=== PATIENT | female | born 1985 | race Caucasian/White ===

== ENCOUNTER 2018-07-22 13:18 | Outpatient (CLI) | payer OTHER ==
[2018-07-22 14:16] LABS: Hemoglobin 14.2 g/dL (12.0-16.0); Mean Corpuscular HGB CONC 34.4 g/dL (32.0-36.0); Mean Corpuscular Hemoglobin 31.8 pg (27.0-31.0); Mean Corpuscular Volume 92.4 fL (78.0-98.0); Mean Platelet Volume 7.6 fL (7.4-10.4); Platelet Count 244 thou/uL (130-400); RBC Distribution Width 11.8 % (11.5-14.5); Red Blood Cell (RBC) Count 4.46 mill/uL (4.20-5.40); White Blood Cell (WBC) Count 8.9 thou/uL (4.8-10.8)
== END 2018-07-22 13:19 | disposition home or self-care (01) ==
LOC: LABBT 13:18
PROVIDERS: ATTEND Student in an Organized Health Care Education/Training Program
DX: Z01.812 Encounter for preprocedural laboratory examination (principal); O02.1 Missed abortion
CPT/HCPCS: 85027; 86850; 86870; 86900; 86901

== ENCOUNTER 2018-07-24 10:26 | Day surgery (SDC) | payer OTHER ==
[2018-07-22 13:32] VITALS: BMI 38.9
--- NOTE | 2018-07-23 19:29 | HP ---
PREOPERATIVE HISTORY AND PHYSICAL DATE OF OPERATION: 07/24/2018. CHIEF COMPLAINT: Incomplete at 11 weeks and 5 days. HISTORY OF PRESENT ILLNESS: This is a 33-year-old G1, P0 at 11 weeks and 5 days by last menstrual period that was diagnosed on an initial presentation on July 02 with missed at 8 weeks and 5 days. She opted to undergo Cytotec induction. She took Cytotec x2 doses, started bleeding and passing tissue. She then followed up 2 weeks later with continued bleeding and ultrasound showed products of conception in the lower uterine segment. These were attempted to be extracted with Uterine Dressing forceps, however, that was unsuccessful. The patient opted for repeat Cytotec dose. She took 2 doses at that evening and she did not pass any further tissue and continuous to bleed off and on at a moderate amount. She did not endorse any extreme pelvic pain, fever, or bleeding 1 pad per hour or more. The patient is ready for a definitive management with suction D and C. PAST MEDICAL HISTORY: Hypothyroidism and obesity. PAST SURGICAL HISTORY: Thyroid surgery in 2012. SOCIAL HISTORY: Current smoker. Negative for alcohol or drug use. FAMILY HISTORY: Diabetes, lung cancer, colon cancer, chronic hypertension, OH, and bone cancer. OB HISTORY: G1, P0, SAB current. 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 No history of abnormal Paps or STDs. CURRENT MEDICATIONS: 1. vitamin. 2. Folic acid. 3. Iron. 4. CARDIOLOGY SPECIALIST-Thyroid 120 mg tablet p.o. daily. 5. Probiotics. 6. Vitamin D3 of 4000 units two tablets p.o. daily. REVIEW OF SYSTEMS: Negative. PHYSICAL EXAMINATION: VITAL SIGNS: Blood pressure 120/76, respirations 18, and pulse 87. Weight 264, BMI is 38.4. GENERAL: In no acute distress. CARDIAC: Regular rate and rhythm. LUNGS: Clear to auscultation bilaterally. ABDOMEN: Soft, nontender, and nondistended. EXTREMITIES: No edema, cyanosis, or clubbing. PELVIC: Deferred to OR. ASSESSMENT AND PLAN: A 33-year-old G1, P0 at 11 weeks and 5 days with missed measuring approximately 8 weeks, status post attempted medical management x2 rounds with retained products of conception consistent with incomplete . The patient is dispositioned for suction dilatation and curettage and was discussed risks, benefits, and alternatives. The patient understands and wishes to proceed. She is already received RhoGAM for her Rh negative and she was started on doxycycline 100 mg p.o. b.i.d. on July 22 and we will continue this x5 days. She will follow up in the clinic in 2 days postoperative time. All questions were answered. Job ID: [id number]
[2018-07-24] MEDS ORDERED: Fentanyl 100 MCG/2 ML VIAL ONE (12:28)
[2018-07-24] MEDS ORDERED: Midazolam HCl 2 mg/2 ml Vial ONE (12:31)
[2018-07-24] MEDS ORDERED: Lidocaine 1% PF 5 ML VIAL ONE (13:02)
[2018-07-24] MEDS ORDERED: PROPOFOL 200 MG/20 ML VIAL ONE (13:02)
[2018-07-24] MEDS ORDERED: Ondansetron PF 4 MG/2 ML Vial ONE (13:02)
[2018-07-24] MEDS ORDERED: Ketorolac Tromethamine 30 MG/ML VIAL ONE (13:02)
[2018-07-24] MEDS ORDERED: Morphine 4 MG/ML VIAL ONE (13:44)
[2018-07-24] MEDS ORDERED: Promethazine HCl 25 MG/ML VIAL ONE (13:50)
--- NOTE | 2018-07-24 20:23 | OP ---
DATE OF PROCEDURE: 07/24/2018 PREOPERATIVE DIAGNOSIS: Incomplete at 8 weeks. POSTOPERATIVE DIAGNOSIS: Incomplete at 8 weeks. PROCEDURE PERFORMED: Suction dilation and curettage. ANESTHESIA: General with LMA. AIR CARRIER OPERATIONS INSPECTOR SURGEON: None. ESTIMATED BLOOD LOSS: 20 mL. IVF: 700 mL of crystalloid. URINE OUTPUT: 100 mL of clear urine at the beginning. COMPLICATIONS: None. PATHOLOGY: Products of conception. DRAINS: None. FINDINGS: On exam under anesthesia, small mobile uterus. Normal-appearing cervix and vaginal canal. There were a small amount of products of conception. Excellent hemostasis with no active bleeding at the conclusion of the procedure. OPERATIVE TECHNIQUE: The patient was taken to the operating room where general anesthesia was obtained without difficulty. The patient prepped and draped in a sterile fashion in dorsal lithotomy position. A red rubber was used to drain the bladder. A speculum was placed in the vagina and the anterior lip of the cervix was grasped with a single-tooth tenaculum. The cervix was progressively dilated with Romero dilators and an 8 mm suction cannula was attached to the tubing, but pressure was tested and maximum of 55 mmHg was set. The suction cannula was placed into the uterus into the fundus. A pressure was applied and using a circular motion, the suction cannula was slowly withdrawn and POCs did return. This was performed x2 additional passes with scant blood and no tissue returning. Sharp curettage was taken until gritty tissue was noted in all four quadrants of the uterus. There was no active bleeding noted at that time. Suction cannula was again passed to the uterine fundus. Pressure was applied and withdrawn slowly in a circular motion. There was very little blood that was passing through and no tissue. This was performed x1 additional time. The cervix was then observed and there was no active bleeding from the cervix. The tenaculum was removed. The tenaculum sites were cauterized slightly and then held pressure and these were hemostatic also. All instruments were removed out of the vagina. The patient tolerated the procedure well. Sponge and needle counts correct x2. The patient was taken to recovery room in stable condition. Job ID: [id number]
== END 2018-07-24 13:30 | disposition home or self-care (01) ==
LOC: SDC 10:26
PROVIDERS: ATTEND Student in an Organized Health Care Education/Training Program
PROC: 10D17ZZ Extraction of Products of Conception, Retained, Via Natural or Artificial Opening (ICD-10-PCS; principal; 2018-07-24)
DX: O02.1 Missed abortion (principal); E03.9 Hypothyroidism, unspecified; E66.9 Obesity, unspecified; F17.200 Nicotine dependence, unspecified, uncomplicated; Z79.899 Other long term (current) drug therapy
CPT/HCPCS: 88305; 96374; J1885; J2001; J2250; J2270; J2405; J2550; J2704; J3010

== ENCOUNTER 2018-11-27 16:21 | Outpatient (CLI) | payer OTHER ==
--- NOTE | 2018-11-27 16:52 | RAD ---
THORACIC SPINE THREE VIEWS: 11/27/18 HISTORY: Thoracic spine pain. FINDINGS/IMPRESSION: No fracture, subluxation or bony destruction identified. POS: JACKLYN
== END 2018-11-27 16:22 | disposition home or self-care (01) ==
LOC: BICRAD 16:21
PROVIDERS: ATTEND Internal Medicine
DX: M54.6 Pain in thoracic spine (principal); S29.9XXD Unspecified injury of thorax, subsequent encounter; S22.32XD Fracture of one rib, left side, subsequent encounter for fracture with routine healing
CPT/HCPCS: 72072; 87070

== ENCOUNTER 2019-06-02 14:57 | Emergency (ER) | payer OTHER ==
--- NOTE | 2019-06-02 16:11 | RAD ---
Exam: XR Knee Lt 4 View STANDARD HISTORY: Injury to left knee. Left knee pain. COMPARISON: None FINDINGS: No acute fracture, dislocation, or other acute osseous abnormality is identified. IMPRESSION: No acute osseous abnormality is identified.
== END 2019-06-02 16:45 | disposition home or self-care (01) ==
LOC: SCSER 14:57
DX: S83.92XA Sprain of unspecified site of left knee, initial encounter (principal); F17.210 Nicotine dependence, cigarettes, uncomplicated; X58.XXXA Exposure to other specified factors, initial encounter

== ENCOUNTER 2019-12-31 06:56 | Outpatient (CLI) | payer OTHER ==
[2019-12-31 14:02] LABS: #Eosinphils 0.2 thou/uL (0.0-0.7); #Lymphocytes 1.8 thou/uL (1.20-3.40); #Monocytes 0.5 thou/uL (0.11-0.59); #Neutrophils 3.6 thou/uL (1.40-6.50); %Basophils 0.4 % (0.0-1.0); %Monocytes 7.8 % (0.0-10.0); %Neutrophils 58.9 % (42.0-75.0); Hemoglobin 13.7 g/dL (12.0-16.0); Mean Corpuscular HGB CONC 33.5 g/dL (32.0-36.0); Mean Corpuscular Hemoglobin 31.3 pg (27.0-31.0); Mean Corpuscular Volume 93.5 fL (78.0-98.0); Mean Platelet Volume 8.7 fL (7.4-10.4); Platelet Count 202 thou/uL (130-400); Red Blood Cell (RBC) Count 4.37 mill/uL (4.20-5.40); White Blood Cell (WBC) Count 6.1 thou/uL (4.8-10.8)
[2019-12-31 15:05] LABS: BHCG - Serum Negative (NEGATIVE); Pregs Control Background? CLEAR/WHITE (CLR/WHITE); Pregs Control Bar Appear? YES (CONTROL BAR)
[2020-01-01 12:08] LABS: SARS-CoV-2 MS2 Positive; SARS-CoV-2 N Gene Negative; SARS-CoV-2 S Gene Negative; SARS-CoV-2 orf1ab Negative
== END 2019-12-31 06:57 | disposition home or self-care (01) ==
LOC: LABBT 06:56
PROVIDERS: ATTEND Orthopaedic Surgery
DX: Z01.812 Encounter for preprocedural laboratory examination (principal); Z11.59 Encounter for screening for other viral diseases; S83.512A Sprain of anterior cruciate ligament of left knee, initial encounter
CPT/HCPCS: 84703; 85025; 87635; U0003

== ENCOUNTER 2020-01-05 08:18 | Day surgery (SDC) | payer OTHER ==
[2019-12-30 15:28] VITALS: BMI 35.7
[2020-01-05] MEDS ORDERED: Fentanyl 100 MCG/2 ML VIAL ONE ×3 (09:50→15:06)
[2020-01-05] MEDS ORDERED: Midazolam HCl 2 mg/2 ml Vial ONE (09:50)
[2020-01-05] MEDS ORDERED: traMADol HCl 50 MG TAB PO PRN ×2 (10:03)
[2020-01-05] MEDS ORDERED: Zolpidem Tartrate 5 MG TAB PO PRN (10:03)
[2020-01-05] MEDS ORDERED: HYDROcodone/Acetaminophen 10/325 mg Tablet PO PRN ×2 (10:03)
[2020-01-05] MEDS ORDERED: Promethazine HCl 25 MG/ML VIAL IM PRN (10:03)
[2020-01-05] MEDS ORDERED: Ropivacaine 0.2% 550 ML 550 ML NERVE BLCK SCH (10:03)
[2020-01-05] MEDS ORDERED: Ondansetron PF 4 MG/2 ML Vial IVP PRN (10:03)
[2020-01-05] MEDS ORDERED: Fentanyl 100 MCG/2 ML VIAL SLOW IVP PRN (10:04)
[2020-01-05] MEDS ORDERED: Scopolamine 1.5 mg/72 hour Patch ONE (10:10)
[2020-01-05] MEDS ORDERED: HYDROmorphone 0.5 MG/0.5 ML SYRINGE ONE (10:40)
[2020-01-05] MEDS ORDERED: Ondansetron PF 4 MG/2 ML Vial ONE ×2 (13:17→14:35)
[2020-01-05] MEDS ORDERED: Promethazine HCl 25 MG/ML VIAL ONE (13:31)
[2020-01-05] MEDS ORDERED: HYDROcodone/Acetaminophen 5/325 mg Tablet ONE (13:49)
[2020-01-05] MEDS ORDERED: Bupivacaine HCl 0.5%/Epinephrine 1:200,000/PF 30 ml Vial ONE (14:35)
[2020-01-05] MEDS ORDERED: Dexamethasone 20 MG/5 ML VIAL ONE (14:35)
[2020-01-05] MEDS ORDERED: Ketorolac Tromethamine 30 MG/ML VIAL ONE (14:35)
[2020-01-05] MEDS ORDERED: PROPOFOL 200 MG/20 ML VIAL ONE (14:35)
[2020-01-05] MEDS ORDERED: Lidocaine 1% PF 5 ML VIAL ONE (14:35)
--- NOTE | 2020-01-05 22:57 | OP ---
DATE OF PROCEDURE: 01/05/2020 PREOPERATIVE DIAGNOSIS: Left ACL tear. POSTOPERATIVE DIAGNOSIS: Left ACL tear with grade 2 to 3 changes of medial femoral condyle. No full-thickness cartilage defect. PROCEDURE PERFORMED: Left ACL reconstruction. PLASTER BLOCK LAYER: Zeus Parry. ANESTHESIA: Dr. Del Valle. The patient received an adductor canal catheter. ESTIMATED BLOOD LOSS: Less than 30 mL. TOURNIQUET TIME: 77 minutes at 300 mmHg. ANTIBIOTICS: Ancef 2 g. IMPLANTS: 8 x 25 mm screw x2. COMPLICATION: None. HISTORY OF PRESENT ILLNESS: Ms. Meek is a 34-year-old female, with a history of injury to her ACL, which was back in May. I discussed with her reconstruction of that at that time. She did not desire surgery at the time, and was treated conservatively. The patient continued to have symptomatic instability episodes, presented to me with continued pain earlier this month and desired to have her left ACL reconstructed. I discussed with her the risks and benefits of surgery, pain , scar, bleeding, infection, damage to vital structures, arthritis, loss of life or limb. The patient understood the risks and benefits of the procedure and elected to proceed. DESCRIPTION OF PROCEDURE: Time-out was performed designating the patient's left lower extremity as the operative site based on site, consents, and marking. After time-out, the patient's left lower extremity was prepped and draped in a sterile fashion. Anterior midline approach, incision was made down through skin. The patellar tendon 10mm of tendon. We took 25 mm on both sides with plugs. We removed the graft, closed with #2 Vicryl. We then placed our lateral portal, visualized intra-articularly the joint, upon visualization, I noticed that there was tearing of the weightbearing portion of the medial femoral condyle. No full-thickness cartilage, but there were grade 2 to almost 3 changes. There were 3 kind of linear slits noted within the knee. There were some grade 1 to 2 changes of the patella with some lateralization, looked in the gutters, no loose bodies. Menisci showed no obvious tearing. The patient's ACL was torn. We started to do take down of the ACL, debride off ACL, to do our notchplasty. Being happy with this, we placed 6 mm [id number] guide plate posteriorly. We drilled our guide then placed a 9 mm reamer, drilled to 30. We then moved back to our tibia, looked at the footprint, trying to get a little bit more posteriorly on the footprint, drilled and placed the tibia in position. We then cleaned up, took a bone graft from this, cleaned up the tibial graft site. We then ran our graft, placed our graft in place and placed our 8 x 25 mm screw anteriorly to push the graft little more posteriorly within the femur, placed it anterolateral, placed it posterior within the tibia. We put the patient in about 5 to 10 degrees of hyperextension, she has about 20 on the table. We placed the graft in position. Being happy with the overall, we placed our femoral fixation, we cycled and placed our tibial fixation plate using 25 mm interference screw. We washed, we bone grafted the patella and closed with two 0, 2-0, and skin yasmeen. The patient will be weightbearing as tolerated. She is placed on postop brace. She will be followed up in-house and will be discharged to home today. Job ID: [id number] [facility]
== END 2020-01-05 17:25 | disposition home or self-care (01) ==
LOC: SDC 08:18
PROVIDERS: ATTEND Orthopaedic Surgery
PROC: 0MRP47Z Replacement of Left Knee Bursa and Ligament with Autologous Tissue Substitute, Percutaneous Endoscopic Approach (ICD-10-PCS; principal; 2020-01-05)
DX: S83.512A Sprain of anterior cruciate ligament of left knee, initial encounter (principal); G89.18 Other acute postprocedural pain; F17.210 Nicotine dependence, cigarettes, uncomplicated; Z79.82 Long term (current) use of aspirin; Z79.899 Other long term (current) drug therapy; Z88.8 Allergy status to other drugs, medicaments and biological substances; Z91.048 Other nonmedicinal substance allergy status
CPT/HCPCS: A4306; C1713; J0670; J0690; J1100; J1170; J1885; J2001; J2250; J2405; J2550; J2704; J2795; J3010